=== PATIENT | male | born 1985 | race Caucasian/White ===

== ENCOUNTER 2018-04-07 16:03 | Emergency (ER) | payer MEDICAID ==
[~2018-04-07] VITALS: Ht 177.8 cm; Wt 136.1 kg
[2018-04-07 16:10] VITALS: BP 133/63
--- NOTE | 2018-04-07 16:20 | NUR ---
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
--- NOTE | 2018-04-07 17:30 | NUR ---
DR HULL AT BEDSIDE FOR PT EVALUATION
[2018-04-07] MEDS ORDERED: KETOROLAC 60 MG/2 ML VIAL IM ONE (17:40)
[2018-04-07 18:01] VITALS: BP 128/64
--- NOTE | 2018-04-07 18:01 | NUR ---
Patient discharged with v/s stable. Written and verbal after care instructions given and explained. Patient alert, oriented and verbalized understanding of instructions. Ambulatory with steady gait. All questions addressed prior to discharge. ID band removed. Patient advised to follow up with PMD. Rx of ACETIC ACID 2%, MOTRIN, BLEPH-10 given. Patient educated on indication of medication including possible reaction and side effects. Opportunity to ask questions provided and answered.
== END 2018-04-07 18:01 | disposition home or self-care (01) ==
LOC: MED 16:03
DX: H60.93 Unspecified otitis externa, bilateral (principal); H10.89 Other conjunctivitis; R03.0 Elevated blood-pressure reading, without diagnosis of hypertension; Z88.0 Allergy status to penicillin
CPT/HCPCS: 96372; 99283; J1885